=== PATIENT | male | born 1995 | race Two or more races ===

== ENCOUNTER 2024-12-25 06:54 | Emergency (ER) | payer OTHER ==
[~2024-12-25] VITALS: Ht 172.7 cm; Wt 90.9 kg
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
[2024-12-25] MEDS: MORPHINE SULFATE 4 MG/ML SYR/VIAL IV ONE (08:14)
[2024-12-25] MEDS: ONDANSETRON HCL 4 MG/2 ML VIAL IV ONE (08:14)
[2024-12-25] MEDS ORDERED: HYDR-4902 PO (08:27)
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
[2024-12-25] MEDS: HYDROcodone-ACET 10/325MG TAB PO ONE (10:35)
[2024-12-25 11:14] VITALS: BP 151/88; PULSE 81; RESP 16; TEMP 99.4; O2SAT 98
== END 2024-12-25 11:35 | disposition home or self-care (01) ==
LOC: ER 06:54 → EDBD 06:54 → ER 11:35
DX: S42.002A Fracture of unspecified part of left clavicle, initial encounter for closed fracture (principal); Z79.899 Other long term (current) drug therapy; V89.2XXA Person injured in unspecified motor-vehicle accident, traffic, initial encounter; Y93.89 Activity, other specified; Y92.89 Other specified places as the place of occurrence of the external cause; Y99.8 Other external cause status
CPT/HCPCS: 73030; 73200; 96374; 96375; 99285; J2270; J2405